=== PATIENT | male | born 1990 | race Caucasian/White ===

== ENCOUNTER 2017-07-31 11:32 | Emergency (ER) | payer SELFPAY ==
[~2017-07-31] VITALS: Ht 175.3 cm; Wt 70.0 kg
[2017-07-31] MEDS ORDERED: LIDOCAINE HCL 1% 20ML VIAL (Pyxis) INJ INFIL ONE (12:30)
[2017-07-31] MEDS ORDERED: KETAMINE HCL 50 MG/ML 10ML IV ONE (13:00)
[2017-07-31] MEDS ORDERED: CEFAZOLIN 1000MG PREMIX 50 ML IV ONE (14:30)
[2017-07-31 15:42] LABS: HEPATITIS B SURFACE ANTIGEN NEGATIVE
[2017-07-31 17:37] VITALS: BP 103/62
[2017-08-02 13:07] LABS: HEPATITIS B CORE ANTIBODY Negative (Negative)
== END 2017-07-31 17:40 | disposition home or self-care (01) ==
LOC: ER 11:42
DX: L08.9 Local infection of the skin and subcutaneous tissue, unspecified (principal); F12.10 Cannabis abuse, uncomplicated
CPT/HCPCS: 36415; 64450; 73140; 87186; 96365; 99152; 99153; 99285; J0690; J3490; Z7610